=== PATIENT | male | born 1950 | race Hispanic/Latino ===

== ENCOUNTER 2017-09-29 18:32 | Emergency (ER) | payer MEDICARE, BC ==
[2017-09-29 18:43] VITALS: TEMP 99.1; O2SAT 98; BMI 26.6
[2017-09-29 18:46] VITALS: RESP 18
--- NOTE | 2017-09-29 19:15 | ED PDOC ---
Arrival/HPI - General Historian: Patient - History of Present Illness Time/Duration: 24 hours Symptom Onset: Sudden Symptom Course: Unchanged <Nehemias Moses - Last Filed: 09/29/17 20:26> <Shalini Yoon - Last Filed: 09/29/17 21:19> - General Chief Complaint: Male Genitourinary Time Seen by Provider: 09/29/17 18:44 - History of Present Illness Narrative History of Present Illness (Text): 09/29/17 19:12 This is a 67 yo male with past medical hx of BPH presenting with chief complaint hematuria. Reports hematuria began this morning. Only happened once before, very briefly, after prostate sx earlier this yr. Otherwise never happened before. Denies trauma or vigorous exercise. Reports color as bright red. It is painless. Happened 2-3 x, during each urination. No blood clots. No fevers, chills, wt loss, or any other systemic sx. PMH: BPH PSH: ventral hernia repair, laser prostate sx Allergies: NKDA FH: denies Home meds: finasteride Social hx: current smoker. for over 30 yrs. No drinking. drug use. Born in [place]. (Nehemias Moses) Past Medical History - Provider Review Nursing Documentation Reviewed: Yes - Travel History Have you recently traveled outside [place] w/in the past 3 mons?: No - Infectious Disease Hx of Infectious Diseases: None - Tetanus Immunization Tetanus Immunization: Unknown - Cardiac Hx Cardiac Disorders: No Hx Pacemaker: No - Neurological Hx Paralysis: No - HEENT Hx HEENT Disorder: Yes (prosthetic ear drum) - Hematological/Oncological Hx Blood Transfusions: No Hx Blood Transfusion Reaction: No - Musculoskeletal/Rheumatological Hx Musculoskeletal Disorders: No - Gastrointestinal Hx Gastrointestinal Disorders: Yes - Genitourinary/Gynecological Hx Prostate Problems: Yes Hx Reproductive Disorders: No Other/Comment: bladder sx - Psychiatric Hx Emotional Abuse: No Hx Physical Abuse: No Hx Substance Use: No - Surgical History Other/Comment: abd hernia - Anesthesia Hx Anesthesia Reactions: No Hx Malignant Hyperthermia: No - Suicidal Assessment Feels Threatened In Home Enviroment: No <Nehemias Moses - Last Filed: 09/29/17 20:26> Family/Social History - Physician Review Nursing Documentation Reviewed: Yes Family/Social History: No Known Family HX Smoking Status: Heavy Smoker > 10 Cigarettes Daily Hx Alcohol Use: No Hx Substance Use: No <Nehemias Moses - Last Filed: 09/29/17 20:26> Allergies/Home Meds <Nehemias Moses - Last Filed: 09/29/17 20:26> <Shalini Yoon - Last Filed: 09/29/17 21:19> Allergies/Adverse Reactions: Allergies No Known Allergies Allergy (Verified 09/29/17 18:43) Home Medications: Home Meds Medication Instructions Recorded Confirmed Finasteride [Proscar] 5 mg PO DAILY 01/01/17 09/29/17 Review of Systems - Review of Systems Constitutional: absent: Fatigue, Weight Change, Fevers Eyes: absent: Vision Changes, Photophobia ENT: absent: Hearing Changes, Tinnitus Respiratory: absent: SOB, Cough Cardiovascular: absent: Chest Pain, Palpitations Gastrointestinal: absent: Abdominal Pain, Stool Changes Genitourinary Male: Hematuria. absent: Dysuria, Frequency Musculoskeletal: absent: Arthralgias, Back Pain Skin: absent: Rash, Pruritis Neurological: absent: Headache, Dizziness Endocrine: absent: Diaphoresis, Polyuria Hemo/Lymphatic: absent: Adenopathy, Easy Bruising Psychiatric: absent: Anxiety, Depression <Nehemias Moses - Last Filed: 09/29/17 20:26> Physical Exam Vital Signs Reviewed: Yes - Systems Exam Head: Present: Atraumatic, Normocephalic Pupils: Present: PERRL Extroacular Muscles: Present: EOMI Conjunctiva: Present: Normal Mouth: Present: Moist Mucous Membranes Respiratory/Chest: Present: Clear to Auscultation. No: Accessory Muscle Use Cardiovascular: Present: Normal S1, S2 Abdomen: Present: Distention. No: Tenderness, Peritoneal Signs Genitourinary Male: Present: Normal External Genitalia. No: Lesions, Penile Discharge, Penile Swelling, Erythema Upper Extremity: Present: Normal Inspection. No: Cyanosis, Edema Lower Extremity: Present: Normal Inspection. No: Edema Neurological: Present: CN II-XII Intact, Speech Normal Skin: Present: Warm, Dry Psychiatric: Present: Alert, Oriented x 3, Normal Insight, Normal Concentration <Nehemias Moses - Last Filed: 09/29/17 20:26> Vital Signs Temp Pulse Resp BP Pulse Ox 09/29/17 18:43 99.1 F 88 18 174/99 H 98 09/29/17 18:42 99.1 F 88 17 174/99 H 98 Medical Decision Making <Nehemias Moses - Last Filed: 09/29/17 20:26> <Shalini Yoon - Last Filed: 09/29/17 21:19> ED Course and Treatment: 09/29/17 20:26 -ordered CBC, CMP -lipase -UA -PT/INR -UA shows large blood, too numerous to count RBCs, trace LE -will give 1 g of rocephin (Nehemias Moses) 09/29/17 21:14 Patient seen and examined with resident; blood work is unremarkable. Urine shows RBC with likely uti - will give rocephin and d/c on macrobid. The patient has a urologist (Dr. davey) and can see him tomorrow - will dc. (Shalini Yoon) - Lab Interpretations Lab Results: 09/29/17 19:35 09/29/17 19:35 Lab Results 09/29/17 19:35: Sodium 141, Potassium 4.1, Chloride 104, Carbon Dioxide 27, Anion Gap 14, BUN 19, Creatinine 1.1, Est GFR ( Amer) > 60, Est GFR (Non- Af Amer) > 60, Random Glucose 137 H, Calcium 9.3, Total Bilirubin 0.6, AST 42, ALT 77 H, Alkaline Phosphatase 65, Total Protein 8.1, Albumin 4.4, Globulin 3.7 , Albumin/Globulin Ratio 1.2, Lipase 91 09/29/17 19:35: PT 10.1, INR 0.93, APTT 28.7 09/29/17 19:35: WBC 10.1 D, RBC 5.08, Hgb 15.2, Hct 43.8, MCV 86.2, MCH 29.9, MCHC 34.7, RDW 13.4, Plt Count 210, MPV 11.6 H, Gran % 65.8, Lymph % (Auto) 21.6 L, [place] % (Auto) 7.0 H, Eos % (Auto) 5.2 H, Baso % (Auto) 0.4, Gran # 6.63 H, Lymph # 2.2, [place] # 0.7 H, Eos # 0.5, Baso # 0.04 09/29/17 19:35: Urine Color Red, Urine Appearance Bloody, Urine pH 7.0, Ur Specific [place] 1.015, Urine Protein 100 H, Urine Glucose (UA) Negative, Urine Ketones Negative, Urine Blood Large H, Urine Nitrate Positive H, Urine Bilirubin Negative, Urine Urobilinogen 1.0 H, Ur Leukocyte Esterase Trace H, Urine RBC Tntc, Urine WBC 2 - 5 - Medication Orders Current Medication Orders: Discontinued Medications Ceftriaxone Sodium (Rocephin 1 Gram Ivpb) 1 gm in 100 mls @ 200 mls/hr IV ONCE STA PRN Reason: Protocol Stop: 09/29/17 20:45 Last Admin: 09/29/17 20:34 Dose: 200 mls/hr eMAR Start Stop Document 09/29/17 20:34 SS (Rec: 09/29/17 20:34 SS [facility] [id number] Intravenous Solution Start Date 09/29/17 Start Time 20:34 End Date 09/29/17 End time 21:04 Total Infusion Time 30 - PA / GLASS DECORATOR / Resident Statement BEAN has reviewed & agrees with the documentation as recorded. BEAN has examined the patient and agrees with the treatment plan. <Shalini Yoon - Last Filed: 09/29/17 21:19> Disposition/Present on Arrival - Present on Arrival History of DVT/PE: No History of Uncontrolled Diabetes: No Urinary Catheter: Yes History of Decub. Ulcer: No History Surgical Site Infection Following: None <Nehemias Moses - Last Filed: 09/29/17 20:26> - Present on Arrival Any Indicators Present on Arrival: No - Disposition Have Diagnosis and Disposition been Completed?: Yes Disposition Time: 20:20 Patient Plan: Discharge <Shalini Yoon - Last Filed: 09/29/17 21:19> - Disposition Diagnosis: Hematuria, Urinary tract infection Disposition: HOME/ ROUTINE Patient Problems: Current Active Problems Problem Status Onset Hematuria Acute Urinary tract infection Acute Condition: GOOD Discharge Instructions (ExitCare): Urinary Tract Infection in Men (ED), Acute Hematuria (ED) Additional Instructions: Drink plenty of fluids. Take the antibiotics as prescribed. Follow up with Dr. Davey tomorrow. Return to the emergency department if any new concerning symptoms. Prescriptions: Nitrofurantoin Macrocrystals [Macrobid] 100 mg PO BID #14 cap Referrals: Delta Davey MD [Staff Provider] - Follow up with primary Forms: [employer] (Luxembour[employer])
[2017-09-29 19:40] LABS: BASO # 0.04 K/mm3 (0.0-2.0); BASO % 0.4 % (0.0-3.0); EOS # 0.5 (0.0-0.7); EOS % 5.2 % (1.5-5.0); GRAN # 6.63 (1.4-6.5); GRAN % 65.8 % (50.0-68.0); HEMATOCRIT 43.8 % (42.0-52.0); LYMPH # 2.2 (1.2-3.4); LYMPH % 21.6 % (22.0-35.0); MEAN CELL VOLUME 86.2 fl (80.0-105.0); MEAN CORPUSCULAR HEMOGLOBIN 29.9 pg (25.0-35.0); MEAN CORPUSCULAR HGB CONC 34.7 g/dl (31.0-37.0); MEAN PLATELET VOLUME 11.6 fl (7.0-11.0); MONO # 0.7 (0.1-0.6); RED CELL DISTRIBUTION WIDTH 13.4 % (11.5-14.5); URINE BILIRUBIN NEGATIVE (NEGATIVE); URINE BLOOD LARGE (NEGATIVE); URINE GLUCOSE (UA) NEGATIVE (NEGATIVE); URINE KETONE NEGATIVE (NEGATIVE); URINE LEUKOCYTE ESTERASE TRACE Leu/uL (NEGATIVE); URINE PROTEIN 100 mg/dL (<30 mg/dL); WHITE BLOOD COUNT 10.1 10^3/ul (4.5-11.0)
[2017-09-29 19:41] LABS: URINE APPEARANCE BLOODY (CLEAR); URINE COLOR RED (YELLOW)
[2017-09-29 19:46] LABS: URINE RBC TNTC /hpf (0-2)
[2017-09-29 19:52] LABS: ALB/GLOB RATIO 1.2 (1.1-1.8); BILIRUBIN,TOTAL 0.6 mg/dL (0.2-1.3); CALCIUM 9.3 mg/dL (8.4-10.5); GFR AFRICAN-AMERICAN > 60; GLUCOSE,RANDOM 137 mg/dL (70-110); LIPASE 91 U/L (23-300); TOTAL PROTEIN 8.1 g/dL (5.8-8.3)
[2017-09-29 19:53] LABS: ALKALINE PHOSPHATASE 65 U/L (38-126); ALT/SGPT 77 U/L (7-56); AST/SGOT 42 U/L (17-59); BLOOD UREA NITROGEN 19 mg/dL (7-21); CARBON DIOXIDE 27 mmol/L (21-33); CHLORIDE 104 mmol/L (98-107); INR 0.93 (0.93-1.08); PARTIAL THROMBOPLASTIN TIME 28.7 Seconds (25.1-36.5); POTASSIUM 4.1 mmol/L (3.6-5.0); SODIUM 141 mmol/L (132-148)
[2017-09-29] MEDS ORDERED: cefTRIAXone 1 gm 1 GM/100 ML BAG IV STA (20:16)
[2017-09-29 22:09] VITALS: BP 143/85; PULSE 87
== END 2017-09-29 21:01 | disposition home or self-care (01) ==
LOC: ED 18:32
DX: N39.0 Urinary tract infection, site not specified (principal); R31.9 Hematuria, unspecified
CPT/HCPCS: 80053; 81001; 83690; 85025; 85610; 85730; 87086; 96365; 99284; J0696

== ENCOUNTER 2018-05-15 21:39 | Emergency (ER) | payer MEDICARE, BC ==
--- NOTE | 2018-05-15 21:48 | ED PDOC ---
Arrival/HPI - General Time Seen by Provider: 05/15/18 21:47 Historian: Patient - History of Present Illness Narrative History of Present Illness (Text): 05/15/18 21:48 67 year old male, pmh including BPH/UTI/COPD, nkda, complaining of an episode of hematuria started this evening with no fall or trauma. Pt. stated that he had hematuria before from the UTI, feels like same episode today, stated that he has been urinating but more frequently but can not completely empty the bladder, no fever or chills, no night sweat, no dizziness, no change in vision, no other medical or psychological complaints. Past Medical History - Provider Review Nursing Documentation Reviewed: Yes - Infectious Disease Hx of Infectious Diseases: None - Tetanus Immunization Tetanus Immunization: Unknown - Cardiac Hx Cardiac Disorders: No Hx Pacemaker: No - Neurological Hx Paralysis: No - HEENT Hx HEENT Disorder: Yes (prosthetic ear drum) - Hematological/Oncological Hx Blood Transfusions: No Hx Blood Transfusion Reaction: No - Musculoskeletal/Rheumatological Hx Musculoskeletal Disorders: No - Gastrointestinal Hx Gastrointestinal Disorders: Yes - Genitourinary/Gynecological Hx Prostate Problems: Yes Hx Reproductive Disorders: No Other/Comment: bladder sx - Psychiatric Hx Emotional Abuse: No Hx Physical Abuse: No Hx Substance Use: No - Surgical History Other/Comment: abd hernia - Anesthesia Hx Anesthesia Reactions: No Hx Malignant Hyperthermia: No - Suicidal Assessment Feels Threatened In Home Enviroment: No Family/Social History - Physician Review Nursing Documentation Reviewed: Yes Family/Social History: Unknown Family HX Smoking Status: Heavy Smoker > 10 Cigarettes Daily Hx Alcohol Use: No Hx Substance Use: No Allergies/Home Meds Allergies/Adverse Reactions: Allergies No Known Allergies Allergy (Verified 09/29/17 18:43) Home Medications: Home Meds Medication Instructions Recorded Confirmed Finasteride [Proscar] 5 mg PO DAILY 01/01/17 05/15/18 Review of Systems - Review of Systems Constitutional: absent: Fatigue, Fevers Eyes: absent: Vision Changes ENT: absent: Hearing Changes Respiratory: absent: SOB, Cough Cardiovascular: absent: Chest Pain Gastrointestinal: absent: Abdominal Pain, Nausea, Vomiting Genitourinary Male: Hematuria. absent: Dysuria, Frequency, Urinary Output Changes Musculoskeletal: absent: Arthralgias, Back Pain Skin: absent: Rash, Pruritis Neurological: absent: Headache, Dizziness Psychiatric: absent: Anxiety, Depression Physical Exam Vital Signs Temp Pulse Resp BP Pulse Ox 05/15/18 23:13 76 18 154/88 H 96 05/15/18 22:06 97.8 F 89 18 196/107 H 95 - Systems Exam Head: Present: Atraumatic, Normocephalic Pupils: Present: PERRL Extroacular Muscles: Present: EOMI Conjunctiva: Present: Normal Mouth: Present: Moist Mucous Membranes Neck: Present: Normal Range of Motion Respiratory/Chest: Present: Clear to Auscultation, Good Air Exchange. No: Respiratory Distress, Accessory Muscle Use Cardiovascular: Present: Regular Rate and Rhythm, Normal S1, S2. No: Murmurs Abdomen: No: Tenderness, Distention, Peritoneal Signs, Rebound, Guarding Back: Present: Normal Inspection Upper Extremity: Present: Normal Inspection. No: Cyanosis, Edema Lower Extremity: Present: Normal Inspection. No: Edema Neurological: Present: GCS=15, CN II-XII Intact, Speech Normal Skin: Present: Warm, Dry, Normal Color. No: Rashes Psychiatric: Present: Alert, Oriented x 3, Normal Insight, Normal Concentration Medical Decision Making ED Course and Treatment: 05/15/18 21:55 Differential: UTI vs. hemorrhagic cystitis vs. urinary retention -Urinalysis -Bladder scanner -Observe and reassess 05/15/18 22:38 -Urinalysis show no UTI but hematuria, likely from the distenion of the bladder -Bladder sonogram show 928ML, refused carbajal at this time, only urinated 200ml now. 05/15/18 23:00 PROCEDURE: Carbajal Catheter Insertion Performed by mn Consent: Informed consent, after discussion of the risks, benefits, and alternatives to the procedure was obtained. Timeout: A timeout to verify the correct patient, procedure, and site was performed. Indication: Urinary retention Preparation: Hand hygiene performed prior to Carbajal catheter insertion. The area was prepped and draped in the usual sterile fashion. Procedure: A 16 Irish carbajal catheter was placed into urethra with 1 attempt. Assessment: Draining 1000cc of dark, bright red urine to clear color Post-procedure: The patient tolerated the procedure well with no immediate complications. Pt with significant relief following carbajal catheter insertion. total procedure time 15 minutes 05/15/18 23:29 -Keflex ordered, leg bag -pt. feels completely relief. -Discharge home with keflex, leg bag, continue your BPH medication, follow up with your own urologist and pmd within 2 days, return to the ER for any new or worsening signs or symptoms. - Lab Interpretations Lab Results: Lab Results 05/15/18 21:58: Urine Color Red, Urine Appearance Cloudy, Urine pH 6.5, Ur Specific [place] 1.010, Urine Protein 30 H, Urine Glucose (UA) >=1000, Urine Ketones Negative, Urine Blood Large H, Urine Nitrate Negative, Urine Bilirubin Negative, Urine Urobilinogen 0.2, Ur Leukocyte Esterase Negative, Urine RBC Tntc , Urine WBC Negative, Ur Epithelial Cells None, Urine Bacteria None - Medication Orders Current Medication Orders: Discontinued Medications Cephalexin Monohydrate (Keflex) 500 mg PO STAT STA PRN Reason: Protocol Stop: 05/15/18 23:15 Last Admin: 05/15/18 23:20 Dose: 500 mg - PA / ELECTRONIC ASSEMBLER [employer] LEADER / Resident Statement / has reviewed & agrees with the documentation as recorded. Disposition/Present on Arrival - Present on Arrival Any Indicators Present on Arrival: No History of DVT/PE: No History of Uncontrolled Diabetes: No Urinary Catheter: Yes History of Decub. Ulcer: No History Surgical Site Infection Following: None - Disposition Have Diagnosis and Disposition been Completed?: Yes Diagnosis: Urine retention, BPH (benign prostatic hyperplasia) Disposition: HOME/ ROUTINE Disposition Time: 21:56 Patient Plan: Discharge Condition: IMPROVED Additional Instructions: -Discharge home with keflex, leg bag, continue your BPH medication, follow up with your own urologist and pmd within 2 days, return to the ER for any new or worsening signs or symptoms. Prescriptions: Cephalexin [Keflex] 500 mg PO BID #14 capsule Referrals: Delta Davey MD [Staff Provider] - Follow up with primary Forms: WORK NOTE
[2018-05-15 22:02] VITALS: BMI 23.5
[2018-05-15 22:18] LABS: PH,URINE 6.5 (4.7-8.0); URINE BILIRUBIN NEGATIVE (NEGATIVE); URINE BLOOD LARGE (NEGATIVE); URINE GLUCOSE (UA) >=1000 mg/dL (NEGATIVE); URINE LEUKOCYTE ESTERASE NEGATIVE Leu/uL (NEGATIVE); URINE PROTEIN 30 mg/dL (<30 mg/dL); URINE UROBILINOGEN 0.2 E.U./dL (<1 E.U./dL)
[2018-05-15 22:20] VITALS: RESP 18; TEMP 97.8
[2018-05-15 22:21] LABS: URINE APPEARANCE CLOUDY (CLEAR); URINE COLOR RED (YELLOW)
[2018-05-15 22:24] LABS: URINE RBC TNTC /hpf (0-2); URINE WBC NEGATIVE /hpf (0-6)
[2018-05-15 23:14] VITALS: BP 154/88; PULSE 76
[2018-05-16 00:06] VITALS: O2SAT 98
== END 2018-05-15 23:40 | disposition home or self-care (01) ==
LOC: ED 21:39
DX: N40.1 Benign prostatic hyperplasia with lower urinary tract symptoms (principal); R33.8 Other retention of urine; F17.210 Nicotine dependence, cigarettes, uncomplicated